=== PATIENT | female | born 1960 | race African-American/Black ===

== ENCOUNTER 2018-02-06 12:56 | Inpatient (IN) | END 2018-02-08 14:45 | disposition home or self-care (01) | DRG 558 ==

== ENCOUNTER 2018-09-17 14:57 | Inpatient (IN) | payer OTHER ==
[~2018-09-17] VITALS: Ht 180.3 cm; Wt 107.0 kg
[~2018-09-17 14:57] MED LIST: LAMO200T2 PO; OXYC-279 PO; QUET400T PO; TAMS0.4C2 PO
[2018-09-17] MEDS ORDERED: SOD CHLORIDE 0.9% 500 ML IV STA (15:10)
[2018-09-17] MEDS ORDERED: HYDROmorphONE 1 MG/ML SYG IV STA (15:10)
[2018-09-17] MEDS ORDERED: ONDANSETRON 4 MG INJ IV STA (15:10)
[2018-09-17] MEDS ORDERED: LAMO200T2 PO (15:59)
[2018-09-17] MEDS ORDERED: DOXE25CA2 PO (16:00)
[2018-09-17] MEDS ORDERED: QUET400T11 PO (16:00)
[2018-09-17] MEDS ORDERED: OXYC-431 PO (16:02)
[2018-09-17] MEDS ORDERED: HYDROmorphONE 2 MG/ML SYG IV STA ×2 (17:02→19:57)
[2018-09-17] MEDS ORDERED: LORAZEPAM 2 MG INJ IV ONE (18:00)
--- NOTE | 2018-09-17 20:34 | ERD ---
ER Documentation Chief Complaint Chief Complaint BIB RA FOR EVAL OF RT KNEE PAIN S/P KNEE REPLACEMENT 1 week ago HPI This is a 58-year-old female who is one-week status post total knee replacement at [facility]. The patient has not received any pain medication since her surgery. She refused pain medication upon discharge. She is coming in because of intractable right knee and right lower extremity pain since the surgery. The pain has been the exact same since discharge. She notes 9 out of 10 throbbing pain to the entirety of the right lower extremity with associated bruising. She denies any fevers or chills, she has not seen her surgeon since the surgery. ROS All systems reviewed and are negative except as per history of present illness. Medications Home Meds Reported Medications Oxycodone HCl/Acetaminophen (Oxycodone-Acetaminophen 10-325) 1 Each Tablet, 2 E ACH PO BID, TAB 09/17/18 Quetiapine Fumarate* (Quetiapine Fumarate*) 400 Mg Tablet, 400 MG PO HS, TAB 09/17/18 Doxepin Hcl* (Doxepin Hcl*) 25 Mg Capsule, 25 MG PO HS, CAP 09/17/18 Lamotrigine* (Lamotrigine*) 200 Mg Tablet, 200 MG PO DAILY, TAB 09/17/18 Discontinued Reported Medications Oxycodone HCl/Acetaminophen (Percocet 5-325 mg Tablet) 1 Each Tablet, 1 EACH PO NEEDED, TAB 02/04/18 Discontinued Scripts Quetiapine Fumarate* (Seroquel*) 400 Mg Tablet, 600 MG PO DAILY, #30 TAB Prov:REGIDORMITA 02/08/18 Lamotrigine* (Lamotrigine*) 200 Mg Tablet, 200 MG PO DAILY, #30 TAB Prov:REGROXRMITA 02/08/18 Tamsulosin Hcl* (Tamsulosin Hcl*) 0.4 Mg Cap.er.24h, 0.4 MG PO DAILY, #30 CAP Prov:MITA JIMENEZ 02/08/18 Allergies Allergies: Coded Allergies: bupropion (Verified Allergy, Intermediate, 09/17/18) PMhx/Soc History of Surgery: Yes (Bilateral Ankles, and Hysterectomy) Anesthesia Reaction: No Hx Neurological Disorder: Yes (Weakness, Dizziness) Hx Respiratory Disorders: Yes (Smoker) Hx Cardiac Disorders: No Hx Psychiatric Problems: Yes (Bipolar) Hx Miscellaneous Medical Probl: No Hx Alcohol Use: No Hx Substance Use: No Hx Tobacco Use: Yes Smoking Status: Current every day smoker FmHx Family History: No diabetes Physical Exam Vitals Vital Signs Date Temp Pulse Resp B/P (MAP) Pulse Ox O2 O2 Flow FiO2 Time Delivery Rate 09/17/18 103 16 149/98 98 Room Air 17:21 (115) 09/17/18 99.2 94 19 200/100 97 15:14 (133) Physical Exam General: Very uncomfortable Head: Normocephalic, atraumatic. Eyes: Pupils equally reactive, EOM intact ENT: Moist mucous membranes Neck: Supple, no lymphadenopathy Respiratory: Lungs clear bilaterally, no distress Cardiovascular: RRR, no murmurs, rubs, or gallops Abdominal: Soft, non-tender, non-distended, no peritoneal signs : Deferred MSK: The right lower extremity has swelling, bruising secondary to postoperative changes. The dressing is clean dry and intact. The patient is strong 2+ dorsalis pedis and posterior tibial pulses with good capillary refill distally. The patient's compartments are soft. Neurologic: Alert and oriented, moving all extremities, normal speech, no focal weakness, no cerebellar signs Skin: No rash Psych: Normal mood Result Diagram: 09/17/18 1534 Results 24 hrs Laboratory Tests Test 09/17/18 15:34 White Blood Count 17.2 10^3/ul Red Blood Count 3.00 10^6/ul Hemoglobin 8.5 g/dl Hematocrit 26.7 % Mean Corpuscular Volume 89.0 fl Mean Corpuscular Hemoglobin 28.3 pg Mean Corpuscular Hemoglobin Concent 31.8 g/dl Red Cell Distribution Width 16.0 % Platelet Count 473 10^3/UL Mean Platelet Volume 9.4 fl Immature Granulocytes % 1.200 % Neutrophils % 78.3 % Lymphocytes % 12.9 % Monocytes % 6.9 % Eosinophils % 0.5 % Basophils % 0.2 % Nucleated Red Blood Cells % 0.7 /100WBC Immature Granulocytes # 0.200 10^3/ul Neutrophils # 13.5 10^3/ul Lymphocytes # 2.2 10^3/ul Monocytes # 1.2 10^3/ul Eosinophils # 0.1 10^3/ul Basophils # 0.0 10^3/ul Nucleated Red Blood Cells # 0.1 10^3/ul Prothrombin Time 12.4 Sec Prothrombin Time Ratio 1.0 INR International Normalized Ratio 0.91 Activated Partial Thromboplast Time 29.4 Sec Current Medications Medications Dose Sig/Daniela Start Time Status Last (Trade) Ordered Route PRN Stop Time Admin Dose Reason Admin Sodium 500 ml @ Q1H STAT 09/17/18 DC 09/17/18 Chloride 500 mls/hr IV 15:10 15:38 09/17/18 16:09 1 mg ONCE STAT 09/17/18 DC 09/17/18 Hydromorphone IV 15:10 15:38 HCl 09/17/18 15:12 (Dilaudid) Ondansetron 4 mg ONCE STAT 09/17/18 DC 09/17/18 HCl (Zofran IV 15:10 15:38 Inj) 09/17/18 15:12 1 mg ONCE STAT 09/17/18 DC 09/17/18 Hydromorphone IV 17:02 17:08 HCl 09/17/18 17:03 (Dilaudid) Lorazepam 1 mg ONCE ONCE 09/17/18 DC 09/17/18 (Ativan) IV 18:00 18:26 09/17/18 18:01 1 mg ONCE STAT 09/17/18 DC 09/17/18 Hydromorphone IV 19:57 20:04 HCl 09/17/18 19:58 (Dilaudid) Procedures/MDM EKG, MONITORS, & DIAGNOSTIC IMAGING: Right lower extremity duplex: No evidence of DVT LAB INTERPRETATION: I reviewed the laboratory testing and it shows leukocytosis likely secondary to stress response. MEDICAL DECISION MAKING: Patient presents with significant pain status post surgical intervention of the right knee. Clinically the lower extremity is very consistent with normal postoperative changes secondary to total knee replacement. Patient does have swelling and ecchymoses and bruising but this is to be expected only 1 week after surgery. I believe the patient's pain is likely secondary to prolonged timeframe without any analgesia including no Tylenol, no Motrin and no pain medication. Patient has good capillary refill without evidence of vascular occlusion. Low concern for DVT the ultrasound would be appropriate. Compartments are soft and the patient is well perfused distally. ER COURSE: * The patient has required multiple doses of pain medication here in the emergency room. Anxiolysis additionally given. Given the persistence of discomfort I would recommend admission. I have attempted to reach out to the patient's primary surgeon but his office states that he is out of town and no one is covering. I have also reached out to [facility], they do not have any beds available but have given authorization to admit here and will take the patient in the morning when a bed becomes available. Authorization number is [id number] Nie[place] * The patient remains hemodynamically stable. I do not believe emergent surgical consultation or intervention is necessary at this time. This seems to be more of a pain control issue. CONSULTATION: [None] DISPOSITION PLAN: Accepting care team and consultations: I discussed the current laboratory data, diagnostic imaging and emergency care provided. Admitting team: Dr. Caldera Admitting team indication: Insurance directed Departure Diagnosis: Primary Impression: Postoperative pain of right knee Additional Impression: Leukocytosis Leukocytosis type: unspecified Qualified Codes: D72.829 - Elevated white blood cell count, unspecified Condition: Stable VIRGIL SCOTT MD Sep 17, 2018 20:34
[2018-09-17] MEDS ORDERED: ACETAMINOPHEN 325 MG TAB PO PRN ×2 (21:00→23:00)
[2018-09-17] MEDS ORDERED: ONDANSETRON 4 MG INJ IV PRN ×2 (21:00→23:00)
[2018-09-17 21:46] VITALS: BP 156/67; PULSE 93; RESP 20
[2018-09-17] MEDS ORDERED: morphine 4 MG/ML VIAL IV ONE (21:52)
[2018-09-17 22:52] VITALS: Ht 180.3 cm; Wt 107.0 kg
[2018-09-17] MEDS ORDERED: NACL 0.9% 3 ML SYG IV SCH (23:00)
[2018-09-17] MEDS ORDERED: HYDROCODONE/APAP (5/325) TAB PO PRN (23:00)
[2018-09-17] MEDS: SOD CHLORIDE 0.9% 1,000 ML IV SCH (23:06)
[2018-09-17] MEDS: HYDROCODONE/APAP (5/325) TAB PO PRN (23:12)
--- NOTE | 2018-09-17 23:37 | HP ---
Date/Time of Note Date/Time of Note DATE: 09/17/18 TIME: 23:37 Assessment/Plan VTE Prophylaxis SCD applied (from Nsg): Yes Pharmacological prophylaxis: NA/contraindicated Pharm contraindication: other (Right lower extremities with ecchymosis. Patient also recent surgery) Lines/Catheters IV Catheter Type (from Nrsg): Saline Lock Assessment/Plan Assessment/Plan 1. Right knee pain: Status post total knee replacement a week ago at [facility] -Obtain x-ray and also CT -Pain management -Empiric antibiotic given presentation of SIRS -ID consult -There is some ecchymosis noted on the right lower extremity including the thigh. Patient has been on aspirin 325 daily. Will hold aspirin and any anticoagulation for now, but daytime MD need to follow-up with this closely and restart aspirin if the CT shows no bleeding. -Case management for transfer to [facility] 2. SIRS, as evidenced by leukocytosis and tachycardia -Check UA, urine culture and blood culture -Empiric IV antibiotic -See #1 3. Hypertensive urgency: Likely pain induced. BP better controlled 4. Bipolar: Continue home meds 5. Normocytic anemia: Likely of chronic disease -Monitor and transfuse as needed Result Diagram: 09/17/18 1534 09/17/182009 Results 24hrs Laboratory Tests Test 09/17/18 15:34 09/17/18 20:10 White Blood Count 17.2 #H Red Blood Count 3.00 L Hemoglobin 8.5 #L Hematocrit 26.7 #L Mean Corpuscular Volume 89.0 Mean Corpuscular Hemoglobin 28.3 L Mean Corpuscular Hemoglobin Concent 31.8 L Red Cell Distribution Width 16.0 H Platelet Count 473 #H Mean Platelet Volume 9.4 Immature Granulocytes % 1.200 H Neutrophils % 78.3 H Lymphocytes % 12.9 L Monocytes % 6.9 Eosinophils % 0.5 Basophils % 0.2 Nucleated Red Blood Cells % 0.7 H Immature Granulocytes # 0.200 H Neutrophils # 13.5 H Lymphocytes # 2.2 Monocytes # 1.2 H Eosinophils # 0.1 Basophils # 0.0 Nucleated Red Blood Cells # 0.1 H Prothrombin Time 12.4 Prothrombin Time Ratio 1.0 INR International Normalized Ratio 0.91 Activated Partial Thromboplast Time 29.4 Sodium Level 141 Potassium Level 3.6 Chloride Level 109 Carbon Dioxide Level 21 Anion Gap 11 Blood Urea Nitrogen 16 Creatinine 0.67 Est Glomerular Filtrat Rate mL/min > 60 Glucose Level 110 Calcium Level 9.1 Creatine Kinase 209 H HPI/ROS Admit Date/Time Admit Date/Time Sep 17, 2018 at 20:38 Hx of Present Illness This is a 58-year-old female with a history of bipolar, normocytic anemia, rhabdomyolysis and right total knee replacement a week ago at [facility] who presented to ER complaining of right knee pain. Pain has been persistent since she had a surgery. She said she went home without the pain medication thinking that she had it at home. She has not been taking any pain medication even Tylenol at home. Pain became unbearable today and thus that she came to the ER for evaluation. Also complains of lower extremity pain on the same leg. Right lower extremity is more swollen than the left. There is ecchymosis noted on the thigh, and calf. She has been taking aspirin 325 daily. Denied redness or any sign of infection. Due to bed unavailability patient could not be transferred to [facility] and as such given authorization to admit here. In the ER, blood pressure was 200/100. WBC 17,000. No fever, hemoglobin 8.5. Lower extremity venous study was negative for DVT. PMH/Family/Social Past Medical History Medical History: other (See HPI) Medications Current Medications Ondansetron HCl (Zofran Inj) 4 mg BRIDGE ORDER PRN IV NAUSEA/VOMITING; Start 09/17/18 at 21:00; Stop 09/18/18 at 20:59 Acetaminophen (Tylenol Tab) 650 mg ER BRIDGE PRN PO .MILD PAIN 1-3 OR TEMP Last administered on 09/17/18at 21:18; Admin Dose 650 MG; Start 09/17/18 at 21:00; Stop 09/18/18 at 20:59 Sodium Chloride 1,000 ml @ 100 mls/hr Q10H IV Last administered on 09/17/18at 23:06; Admin Dose 100 MLS/HR; Start 09/17/18 at 22:32; Stop 09/18/18 at 23:00 IV Flush (NS 3 ml) 3 ml PER PROTOCOL IV ; Start 09/17/18 at 23:00 Ondansetron HCl (Zofran Inj) 4 mg Q6H PRN IV NAUSEA/VOMITING; Start 09/17/18 at 23:00 Acetaminophen (Tylenol Tab) 650 mg Q6H PRN PO .PAIN 1-3 OR TEMP; Start 09/17/18 at 23:00 Acetaminophen/ Hydrocodone Bitart (Jennings (5/325)) 1 tab Q6H PRN PO .MOD PAIN 4- 6; Start 09/17/18 at 23:00 Acetaminophen/ Hydrocodone Bitart (Jennings (5/325)) 2 tab Q6H PRN PO .SEVERE PAIN 7-10 Last administered on 09/17/18at 23:12; Admin Dose 2 TAB; Start 09/17/18 at 23:00 Morphine Sulfate (morphine) 3 mg Q4H PRN IV PAIN7-10,NOTRELIEVEDWITHNORCO; Start 09/17/18 at 23:00 Heparin Sodium (Porcine) (Heparin (5000 Units/1ml)) 5,000 unit Q12 SC ; Start 09/18/18 at 09:00 Doxepin HCl (Sinequan) 25 mg HS PO ; Start 09/18/18 at 21:00 Lamotrigine (Lamictal) 200 mg DAILY PO ; Start 09/18/18 at 09:00 Quetiapine Fumarate (Seroquel) 400 mg HS PO ; Start 09/18/18 at 21:00 Coded Allergies: bupropion (Verified Allergy, Intermediate, 09/17/18) Past Surgical History Past Surgical Hx: other (See HPI) Family History Significant Family History: no pertinent family hx Social History Alcohol Use: none Smoking Status: Former smoker Drug Use: none Exam/Review of Systems Vital Signs Vitals Vital Signs Date Temp Pulse Resp B/P (MAP) Pulse Ox O2 O2 Flow FiO2 Time Delivery Rate 09/17/18 98.0 93 20 156/67 95 Room Air 21:46 (96) Exam Constitutional: other (In distress due to pain) Head: normocephalic, atraumatic Eyes: EOMI, PERRL Respiratory: clear to auscultation, normal air movement Cardiovascular: regular rate and rhythm, nl pulses Gastrointestinal: soft, non-tender Musculoskeletal: other (Right lower extremity swelling. Surgical site on the knee without sign of infection. Area is tender to touch) CHRIS SONG MD Sep 17, 2018 23:37
[2018-09-18 02:12] VITALS: BP 144/77; PULSE 106; RESP 19
[2018-09-18] MEDS: morphine 2 MG INJ IV PRN ×2 (03:23→07:52)
[2018-09-18] MEDS ORDERED: PENDING SANTYL ORDER FOR WOUND CARE XX PRN (04:30)
[2018-09-18] MEDS: HYDROCODONE/APAP (5/325) TAB PO PRN (05:22)
[2018-09-18] MEDS ORDERED: VANCOMYCIN IV PER PHARMACY XX SCH ×2 (06:30→16:30)
[2018-09-18] MEDS ORDERED: VANCOMYCIN HCL 2 GM in SOD CHLORIDE 0.9% 500 ML IVPB SCH (06:30)
[2018-09-18 08:23] VITALS: BP 185/105; PULSE 117; RESP 18
[2018-09-18] MEDS ORDERED: HYDROmorphONE 1 MG/ML SYG IV ONE ×2 (08:30)
[2018-09-18] MEDS: SOD CHLORIDE 0.9% 1,000 ML IV SCH ×2 (08:32→16:34)
[2018-09-18] MEDS ORDERED: LAMOTRIGINE 100 MG TAB PO SCH (09:00)
[2018-09-18] MEDS ORDERED: CEFEPIME 1GM/50 ML (PMX) 50 ML IVPB SCH ×2 (09:00→14:00)
[2018-09-18] MEDS: HEPARIN 5,000 UNIT/1 ML VIAL SC SCH ×2 (09:23→20:08)
--- NOTE | 2018-09-18 09:31 | CONS ---
Consultation Date/Type/Reason Admit Date/Time Sep 17, 2018 at 20:38 Date/Time of Note DATE: 09/18/18 TIME: 09:26 Hx of Present Illness Patient is a 58-year-old female who underwent a right total knee replacement at [facility] 1 week prior to this hospitalization. She left the hospital without pain medications. States that since discharge from hospital she has had increasing discomfort in her right knee worse when she walks but continues to have pain at rest is a gnawing type discomfort does not radiate to her thigh or to her calf. She is unable to participate in any physical therapy activities secondary to pain out of control. At home she has taken Percocet 2 tablets twice a day 10 mg which I have confirmed on the cures. Rates her pain is 10/10 she is receiving Pesotum and morphine since admission here pain seems to be under control when she is administered morphine. Pain interferes with her physical functioning social relationship sleeping patterns overall function there is no past medical history of purposeful or sit oversedation negative mood changes she does not appear to be intoxicated or unkempt. She is not requesting increasing doses or early renewals once again as an outpatient patient has been receiving 120 mg of Percocet every 30 days by her primary care painting and coating worker this is confirmed by the cures history. Patient is not reporting any lost or stolen prescriptions I do not get the impression she is using pain medication response to situational stressors and she is not insisting upon certain pain control medications there is no history of smoking or alcohol abuse. After having leaving multiple messages for her orthopedic surgeon she has been unsuccessful in contacting him. She is also been unsuccessful in contacting her pain management physician. She presents also with leukocytosis and left shift on her CBC. Subjective hx not possible: pt non-verbal Constitutional: No no complaints, No improved, No chills, No diaphoresis, No disoriented, No febrile, No poor po, No requiring IVF, No requiring O2, No other Eyes: No no complaints, No pain, No discharge, No redness, No visual change, No other ENT: No no complaints, No bleeding, No pain, No congestion, No discharge, No dysphagia, No sore throat, No other Respiratory: No no complaints, No pain, No cough, No pleuritic pain, No shortness of breath, No sputum, No wheezing, No other Cardiovascular: No no complaints, No chest pain, No edema, No lightheadedness, No orthopenea, No palpitations, No paroxysmal nocturnal dyspnea, No other Gastrointestinal: No no complaints, No pain, No blood, No constipation, No decreased appetite, No diarrhea, No flatus, No nausea, No passing stool, No vomiting, No other Genitourinary: No no complaints, No bleeding, No dysuria, No discharge, No flank pain, No hematuria, No other Musculoskeletal: No no complaints, No back pain, No bone/joint pain, No neck pain, No restricted range of motion, No swelling, No other Neurologic: No no complaints, No confusion, No dizziness, No focal-weakness, No headache, No syncope, No seizure, No other Endocrine: No no complaints, No polyuria, No polydypsia, No dry skin, No temp intolerance, No other Psychological: anxiety, depression Immunologic: No no complaints, No immunodeficiency, No pruritis, No rhinitis, No urticaria, No other Past Medical History Medical History: other (Depression, chronic low back pain) Home Meds Reported Medications Oxycodone HCl/Acetaminophen (Oxycodone-Acetaminophen 10-325) 1 Each Tablet, 2 EACH PO BID, TAB 09/17/18 Quetiapine Fumarate* (Quetiapine Fumarate*) 400 Mg Tablet, 400 MG PO HS, TAB 09/17/18 Doxepin Hcl* (Doxepin Hcl*) 25 Mg Capsule, 25 MG PO HS, CAP 09/17/18 Lamotrigine* (Lamotrigine*) 200 Mg Tablet, 200 MG PO DAILY, TAB 09/17/18 Discontinued Reported Medications Oxycodone HCl/Acetaminophen (Percocet 5-325 mg Tablet) 1 Each Tablet, 1 EACH PO NEEDED, TAB 02/04/18 Discontinued Scripts Quetiapine Fumarate* (Seroquel*) 400 Mg Tablet, 600 MG PO DAILY, #30 TAB Prov:MITA JIMENEZ 02/08/18 Lamotrigine* (Lamotrigine*) 200 Mg Tablet, 200 MG PO DAILY, #30 TAB Prov:MITA JIMENEZ 02/08/18 Tamsulosin Hcl* (Tamsulosin Hcl*) 0.4 Mg Cap.er.24h, 0.4 MG PO DAILY, #30 CAP Prov:MITA JIMENEZ 02/08/18 Medications Current Medications Sodium Chloride 1,000 ml @ 100 mls/hr Q10H IV Last administered on 09/17/18at 23:06; Admin Dose 100 MLS/HR; Start 09/17/18 at 22:32; Stop 09/18/18 at 23:00 IV Flush (NS 3 ml) 3 ml PER PROTOCOL IV ; Start 09/17/18 at 23:00 Ondansetron HCl (Zofran Inj) 4 mg Q6H PRN IV NAUSEA/VOMITING; Start 09/17/18 at 23:00 Acetaminophen (Tylenol Tab) 650 mg Q6H PRN PO .PAIN 1-3 OR TEMP; Start 09/17/18 at 23:00 Acetaminophen/ Hydrocodone Bitart (Pesotum (5/325)) 1 tab Q6H PRN PO .MOD PAIN 4- 6; Start 09/17/18 at 23:00 Acetaminophen/ Hydrocodone Bitart (Pesotum (5/325)) 2 tab Q6H PRN PO .SEVERE PAIN 7-10 Last administered on 09/18/18at 05:22; Admin Dose 2 TAB; Start 09/17/18 at 23:00 Morphine Sulfate (morphine) 3 mg Q4H PRN IV PAIN7-10,NOTRELIEVEDWITHNORCO Last administered on 09/18/18at 07:52; Admin Dose 3 MG; Start 09/17/18 at 23:00 Heparin Sodium (Porcine) (Heparin (5000 Units/1ml)) 5,000 unit Q12 SC ; Start 09/18/18 at 09:00 Doxepin HCl (Sinequan) 25 mg HS PO ; Start 09/18/18 at 21:00 Lamotrigine (Lamictal) 200 mg DAILY PO ; Start 09/18/18 at 09:00 Quetiapine Fumarate (Seroquel) 400 mg HS PO ; Start 09/18/18 at 21:00 Miscellaneous Information (Pending [facility] Order For Wound Care) This patient macias. .. PRN PRN XX WOUND CARE; Start 09/18/18 at 04:30 Cefepime HCl 50 ml @ 100 mls/hr Q12 IVPB ; Start 09/18/18 at 09:00 Vancomycin HCl (Vanco Iv Per Pharmacy) VANCOMYCIN PER PHARMACY PER PROTOCOL XX ; Start 09/18/18 at 06:30 Vancomycin HCl 2 gm/Sodium Chloride 500 ml @ 125 mls/hr ONCE IVPB Last adm inistered on 09/18/18at 07:58; Admin Dose 125 MLS/HR; Start 09/18/18 at 06:30; Stop 09/18/18 at 10:29 Vancomycin HCl 1.5 gm/Sodium Chloride 250 ml @ 83.333 mls/ hr Q12H IVPB ; Start 09/18/18 at 18:30 Allergies: Coded Allergies: bupropion (Verified Allergy, Intermediate, 09/17/18) Past Surgical History Past Surgical Hx: other (Refer to history of present illness) Social History Alcohol Use: none Smoking Status: Former smoker Drug Use: none Exam/Review of Systems Exam Vitals Vital Signs Date Temp Pulse Resp B/P (MAP) Pulse Ox O2 O2 Flow FiO2 Time Delivery Rate 09/18/18 98.1 117 18 185/105 100 08:23 (131) 09/17/18 Room Air 21:46 Intake and Output 09/17/18 09/17/18 09/18/18 1515:00 23:00 07:00 IntakeIntake Total 1000 ml BalanceBalance 1000 ml Constitutional: alert, oriented, well developed Psych: anxiety Head: normocephalic, atraumatic ENMT: nl external ears & nose, nl lips & teeth, nl nasal mucosa & septum Musculoskeletal: other (Grossly edematous right lower extremity, circumferential ecchymosis, without erythema flocculence streaking erythema longitudinal scar measuring approximately 10 cm well-healed without discharge or flocculence range of motion right lower extremity) Results Result Diagram: 09/18/1851 09/18/18 0651 Results 24hrs Laboratory Tests Test 09/17/18 15:34 09/17/18 20:10 09/18/18 06:51 White Blood Count 17.2 #H 20.0 H Red Blood Count 3.00 L 3.08 L Hemoglobin 8.5 #L 8.6 L Hematocrit 26.7 #L 27.8 L Mean Corpuscular Volume 89.0 90.3 Mean Corpuscular Hemoglobin 28.3 L 27.9 L Mean Corpuscular Hemoglobin Concent 31.8 L 30.9 L Red Cell Distribution Width 16.0 H 16.8 H Platelet Count 473 #H 500 H Mean Platelet Volume 9.4 9.4 Immature Granulocytes % 1.200 H 0.900 H Neutrophils % 78.3 H 86.8 H Lymphocytes % 12.9 L 5.2 L Monocytes % 6.9 7.0 Eosinophils % 0.5 0.0 Basophils % 0.2 0.1 Nucleated Red Blood Cells % 0.7 H 0.2 H Immature Granulocytes # 0.200 H 0.170 H Neutrophils # 13.5 H 17.4 H Lymphocytes # 2.2 1.0 Monocytes # 1.2 H 1.4 H Eosinophils # 0.1 0.0 Basophils # 0.0 0.0 Nucleated Red Blood Cells # 0.1 H 0.0 Prothrombin Time 12.4 Prothrombin Time Ratio 1.0 INR International Normalized Ratio 0.91 Activated Partial Thromboplast Time 29.4 Sodium Level 141 139 Potassium Level 3.6 3.6 Chloride Level 109 104 Carbon Dioxide Level 21 23 Anion Gap 11 12 Blood Urea Nitrogen 16 14 Creatinine 0.67 0.58 Est Glomerular Filtrat Rate mL/min > 60 > 60 Glucose Level 110 108 Calcium Level 9.1 9.1 Creatine Kinase 209 H Phosphorus Level 3.9 Magnesium Level 1.8 Total Bilirubin 1.1 Direct Bilirubin 0.00 Indirect Bilirubin 1.1 Aspartate Amino Transf (AST/SGOT) 35 Alanine Aminotransferase (ALT/SGPT) 29 Alkaline Phosphatase 92 Total Protein 7.5 Albumin 4.3 Globulin 3.20 Albumin/Globulin Ratio 1.34 Medications Medication Current Medications Sodium Chloride 1,000 ml @ 100 mls/hr Q10H IV Last administered on 09/17/18at 23:06; Admin Dose 100 MLS/HR; Start 09/17/18 at 22:32; Stop 09/18/18 at 23:00 IV Flush (NS 3 ml) 3 ml PER PROTOCOL IV ; Start 09/17/18 at 23:00 Ondansetron HCl (Zofran Inj) 4 mg Q6H PRN IV NAUSEA/VOMITING; Start 09/17/18 at 23:00 Acetaminophen (Tylenol Tab) 650 mg Q6H PRN PO .PAIN 1-3 OR TEMP; Start 09/17/18 at 23:00 Acetaminophen/ Hydrocodone Bitart (Pesotum (5/325)) 1 tab Q6H PRN PO .MOD PAIN 4- 6; Start 09/17/18 at 23:00 Acetaminophen/ Hydrocodone Bitart (Pesotum (5/325)) 2 tab Q6H PRN PO .SEVERE PAIN 7-10 Last administered on 09/18/18at 05:22; Admin Dose 2 TAB; Start 09/17/18 at 23:00 Morphine Sulfate (morphine) 3 mg Q4H PRN IV PAIN7-10,NOTRELIEVEDWITHNORCO Last administered on 09/18/18at 07:52; Admin Dose 3 MG; Start 09/17/18 at 23:00 Heparin Sodium (Porcine) (Heparin (5000 Units/1ml)) 5,000 unit Q12 SC ; Start 09/18/18 at 09:00 Doxepin HCl (Sinequan) 25 mg HS PO ; Start 09/18/18 at 21:00 Lamotrigine (Lamictal) 200 mg DAILY PO ; Start 09/18/18 at 09:00 Quetiapine Fumarate (Seroquel) 400 mg HS PO ; Start 09/18/18 at 21:00 Miscellaneous Information (Pending [facility]) This patient macias... PRN PRN XX WOUND CARE; Start 09/18/18 at 04:30 Cefepime HCl 50 ml @ 100 mls/hr Q12 IVPB ; Start 09/18/18 at 09:00 Vancomycin HCl (Vanco Iv Per Pharmacy) VANCOMYCIN PER PHARMACY PER PROTOCOL XX ; Start 09/18/18 at 06:30 Vancomycin HCl 2 gm/Sodium Chloride 500 ml @ 125 mls/hr ONCE IVPB Last administered on 09/18/18at 07:58; Admin Dose 125 MLS/HR; Start 09/18/18 at 06:30; Stop 09/18/18 at 10:29 Vancomycin HCl 1.5 gm/Sodium Chloride 250 ml @ 83.333 mls/ hr Q12H IVPB ; Start 09/18/18 at 18:30 SAMMY BARNETT Sep 18, 2018 09:31
[2018-09-18] MEDS: OXYCODONE/ACETAMINOPHEN (10/325) TAB PO PRN ×2 (09:36→21:23)
[2018-09-18 10:28] VITALS: BP 151/68; PULSE 105
[2018-09-18] MEDS: HYDROmorphONE 0.5 MG/0.5 ML SYG IV PRN ×3 (12:30→19:56)
[2018-09-18 14:51] VITALS: BP 151/72; PULSE 107; RESP 18
--- NOTE | 2018-09-18 16:07 | PN ---
Date/Time of Note Date/Time of Note DATE: 09/18/18 TIME: 16:01 Assessment/Plan VTE Prophylaxis Risk score (from Nsg)>0 risk: 7 SCD applied (from Nsg): Yes Pharmacological prophylaxis: heparin Lines/Catheters IV Catheter Type (from Nrsg): Peripheral IV Assessment/Plan Hospital Course 1. Right knee pain: Status post total knee replacement a week ago at [facility] -X-ray shows only effusion -Pain management -Empiric cefepime -ID consult obtained -Hold aspirin -Case management for transfer to [facility] 2. SIRS, as evidenced by leukocytosis and tachycardia -Continue cefepime, DC Vanco -ID consultation obtained 3. Hypertensive urgency: Likely pain induced. BP better controlled 4. Bipolar: Continue home meds 5. Normocytic anemia: Likely of chronic disease -Monitor and transfuse as needed Prophylaxis: Heparin Result Diagram: 09/18/18 0651 09/18/18 0651 Results 24hrs Laboratory Tests Test 09/17/18 20:10 09/18/18 06:51 Sodium Level 141 139 Potassium Level 3.6 3.6 Chloride Level 109 104 Carbon Dioxide Level 21 23 Anion Gap 11 12 Blood Urea Nitrogen 16 14 Creatinine 0.67 0.58 Est Glomerular Filtrat Rate mL/min > 60 > 60 Glucose Level 110 108 Calcium Level 9.1 9.1 Creatine Kinase 209 H White Blood Count 20.0 H Red Blood Count 3.08 L Hemoglobin 8.6 L Hematocrit 27.8 L Mean Corpuscular Volume 90.3 Mean Corpuscular Hemoglobin 27.9 L Mean Corpuscular Hemoglobin Concent 30.9 L Red Cell Distribution Width 16.8 H Platelet Count 500 H Mean Platelet Volume 9.4 Immature Granulocytes % 0.900 H Neutrophils % 86.8 H Lymphocytes % 5.2 L Monocytes % 7.0 Eosinophils % 0.0 Basophils % 0.1 Nucleated Red Blood Cells % 0.2 H Immature Granulocytes # 0.170 H Neutrophils # 17.4 H Lymphocytes # 1.0 Monocytes # 1.4 H Eosinophils # 0.0 Basophils # 0.0 Nucleated Red Blood Cells # 0.0 Phosphorus Level 3.9 Magnesium Level 1.8 Total Bilirubin 1.1 Direct Bilirubin 0.00 Indirect Bilirubin 1.1 Aspartate Amino Transf (AST/SGOT) 35 Alanine Aminotransferase (ALT/SGPT) 29 Alkaline Phosphatase 92 Total Protein 7.5 Albumin 4.3 Globulin 3.20 Albumin/Globulin Ratio 1.34 Subjective 24 Hr Interval Summary Musculoskeletal: bone/joint pain Exam/Review of Systems Exam Vitals Vital Signs Date Temp Pulse Resp B/P (MAP) Pulse Ox O2 O2 Flow FiO2 Time Delivery Rate 09/18/18 98.7 107 18 151/72 95 Room Air 14:51 (98) Intake and Output 09/17/18 09/17/18 09/18/18 1515:00 23:00 07:00 IntakeIntake Total 1000 ml BalanceBalance 1000 ml Constitutional: alert Respiratory: clear to auscultation Cardiovascular: regular rate and rhythm Gastrointestinal: soft; No distended Musculoskeletal: nl extremities to inspection Results Results 24hrs Laboratory Tests Test 09/17/18 20:10 09/18/18 06:51 Sodium Level 141 139 Potassium Level 3.6 3.6 Chloride Level 109 104 Carbon Dioxide Level 21 23 Anion Gap 11 12 Blood Urea Nitrogen 16 14 Creatinine 0.67 0.58 Est Glomerular Filtrat Rate mL/min > 60 > 60 Glucose Level 110 108 Calcium Level 9.1 9.1 Creatine Kinase 209 H White Blood Count 20.0 H Red Blood Count 3.08 L Hemoglobin 8.6 L Hematocrit 27.8 L Mean Corpuscular Volume 90.3 Mean Corpuscular Hemoglobin 27.9 L Mean Corpuscular Hemoglobin Concent 30.9 L Red Cell Distribution Width 16.8 H Platelet Count 500 H Mean Platelet Volume 9.4 Immature Granulocytes % 0.900 H Neutrophils % 86.8 H Lymphocytes % 5.2 L Monocytes % 7.0 Eosinophils % 0.0 Basophils % 0.1 Nucleated Red Blood Cells % 0.2 H Immature Granulocytes # 0.170 H Neutrophils # 17.4 H Lymphocytes # 1.0 Monocytes # 1.4 H Eosinophils # 0.0 Basophils # 0.0 Nucleated Red Blood Cells # 0.0 Phosphorus Level 3.9 Magnesium Level 1.8 Total Bilirubin 1.1 Direct Bilirubin 0.00 Indirect Bilirubin 1.1 Aspartate Amino Transf (AST/SGOT) 35 Alanine Aminotransferase (ALT/SGPT) 29 Alkaline Phosphatase 92 Total Protein 7.5 Albumin 4.3 Globulin 3.20 Albumin/Globulin Ratio 1.34 Medications Medication Current Medications Sodium Chloride 1,000 ml @ 100 mls/hr Q10H IV Last administered on 09/17/18at 23:06; Admin Dose 100 MLS/HR; Start 09/17/18 at 22:32; Stop 09/18/18 at 23:00 IV Flush (NS 3 ml) 3 ml PER PROTOCOL IV ; Start 09/17/18 at 23:00 Ondansetron HCl (Zofran Inj) 4 mg Q6H PRN IV NAUSEA/VOMITING; Start 09/17/18 at 23:00 Acetaminophen (Tylenol Tab) 650 mg Q6H PRN PO .PAIN 1-3 OR TEMP; Start 09/17/18 at 23:00 Heparin Sodium (Porcine) (Heparin (5000 Units/1ml)) 5,000 unit Q12 SC Last administered on 09/18/18at 09:23; Admin Dose 5,000 UNIT; Start 09/18/18 at 09:00 Doxepin HCl (Sinequan) 25 mg HS PO ; Start 09/18/18 at 21:00 Lamotrigine (Lamictal) 200 mg DAILY PO Last administered on 09/18/18at 09:20; Admin Dose 200 MG; Start 09/18/18 at 09:00 Quetiapine Fumarate (Seroquel) 400 mg HS PO ; Start 09/18/18 at 21:00 Miscellaneous Information (Pending Santyl Order For Wound Care) This patient macias... PRN PRN XX WOUND CARE; Start 09/18/18 at 04:30 Vancomycin HCl (Vanco Iv Per Pharmacy) VANCOMYCIN PER PHARMACY PER PROTOCOL XX ; Start 09/18/18 at 06:30 Vancomycin HCl 1.5 gm/Sodium Chloride 250 ml @ 83.333 mls/ hr Q12H IVPB ; Start 09/18/18 at 18:30 Oxycodone/ Acetaminophen (Endocet (10/ 325)) 2 tab BID PRN PO PAIN LEVEL 1-3 Last administered on 09/18/18at 09:36; Admin Dose 2 TAB; Start 09/18/18 at 09:00 Hydromorphone HCl (Dilaudid) 0.25 mg Q4H PRN IV SEVERE PAIN LEVEL 7-10 Last administered on 09/18/18at 12:30; Admin Dose 0.25 MG; Start 09/18/18 at 09:00 Cefepime HCl 50 ml @ 100 mls/hr Q12 IVPB Last administered on 09/18/18at 14:45; Admin Dose 100 MLS/HR; Start 09/18/18 at 14:00 Miscellaneous Information (*Rx Drug Level Order Reminder*) VANCO TR LEVEL PRIOR ... 1730 ONCE XX ; Start 09/19/18 at 17:30; Stop 09/19/18 at 17:31 MOISES BRAR Sep 18, 2018 16:07
--- NOTE | 2018-09-18 17:57 | CONS ---
DATE OF ADMISSION: 09/18/2018 DATE OF CONSULTATION: 09/18/2018 TYPE OF CONSULTATION: Infectious Disease. REASON FOR CONSULTATION: Antibiotic management. HISTORY OF PRESENT ILLNESS: Sarita Rao is a 58-year-old female who was brought in for evaluation of right knee pain status post knee replacement 1 week ago at [facility]. She has not received any pain medicine since the surgery. She refused pain medication upon discharge. She had intractable r ight knee and right lower extremity pain since the surgery. She complains of 9/10 throbbing pain to the right lower extremity and has not seen her surgeon since the surgery. Past problems include: 1. Surgeries on both ankles. 2. Hysterectomy. 3. Bipolar disorder. 4. Status post total right knee replacement. FAMILY HISTORY: Noncontributory. SOCIAL HISTORY: She is a current every day smoker. She does not drink or abuse drugs. ALLERGIES: NONE TO PENICILLIN, SULFA OR FOODS. MEDICATIONS: Per chart. REVIEW OF SYSTEMS: As per HPI. ANCILLARY LABORATORY DATA: White count 17.2, H and H of 8.5 and 26.7, platelet count 473,000. An x- ray of the knee shows postsurgical changes from right total knee arthroplasty with anatomic alignment , suprapatellar effusion. White count today is up to 20,000. BUN and creatinine are 11/0.67. The p atient had a CT scan ordered. She has evidence of . There is some ecchymosis noted in the right lower extremity including the thighs. She has been on as pirin. We will hold aspirin at the present time. Case management for transfer to [facility]. She was s een by Dr. Myers, started on empiric cefepime. ID consult was obtained. She was on vancomycin, wh ich is a good choice. PHYSICAL EXAMINATION: SKIN: Without generalized rash. HEENT: Within normal limits. NECK: Supple. LYMPH NODES: None palpable. CHEST: Decreased breath sounds at the bases. HEART: Without murmur or gallop. ABDOMEN: Soft and nontender, without organosplenomegaly or masses. EXTREMITIES: She has bruising secondary to postoperative changes and swelling. The dressing is floyd n and dry. RECTAL AND GENITAL: Deferred. NEUROLOGIC: No focal neurological abnormality. IMPRESSION AND PLAN: The patient currently has increasing bruising. She is afebrile. DVT study is negative. The patient has received vancomycin. The cultures so far are pending. We will continue h er on cefepime for the time being, but she may benefit from vancomycin. I am going to add vancomycin , pharmacy to dose. Dictated By: ASHKAN REYES MD, JD/ABDIRIZAK Conf#: [id number] DID#: [id number]
[2018-09-18] MEDS ORDERED: VANCOMYCIN HCL 1.5 GM in SOD CHLORIDE 0.9% 250 ML IVPB SCH ×2 (18:30→20:00)
--- NOTE | 2018-09-18 19:18 | DS ---
Date/Time of Note Date/Time of Note DATE: 09/18/18 TIME: 19:14 Discharge Summary Admission/Discharge Info Admit Date/Time September 17, 2018 Discharge Date/Time September 18, 2018 Discharge Diagnosis 1. Right knee pain: Status post total knee replacement a week ago at [facility] -X-ray shows only effusion, MRI shows moderate effusion -ID consult appreciated, continue IV antibiotics -Patient be transferred back to [facility] where recent right total knee was done 2. SIRS, as evidenced by leukocytosis and tachycardia -Continue antibiotics at outside hospital -Patient has received vancomycin and cefepime during this hospitalization 3. Hypertensive urgency: Likely pain induced. BP better controlled 4. Bipolar: Continue home meds 5. Normocytic anemia: Likely of chronic disease -Monitor and transfuse as needed Patient Condition: Good Hospital Course Patient is a 58-year-old female with a history of obesity, schizophrenia as well as recent right knee replacement done at [facility]. Patient presented with right knee pain with erythema and effusion, x-ray and MRI showed moderate effusion the patient was started on IV antibiotics. Of note patient did have leukocytosis as well as tachycardia suggesting sepsis. records manager arrange for patient to be transferred back to [facility] where surgery was done, on the day of transfer patient's vitals, labs and physical exam are stable. Home Meds Reported Medications Oxycodone HCl/Acetaminophen (Oxycodone-Acetaminophen 10-325) 1 Each Tablet, 2 EACH PO BID, TAB 09/17/18 Quetiapine Fumarate* (Quetiapine Fumarate*) 400 Mg Tablet, 400 MG PO HS, TAB 09/17/18 Doxepin Hcl* (Doxepin Hcl*) 25 Mg Capsule, 25 MG PO HS, CAP 09/17/18 Lamotrigine* (Lamotrigine*) 200 Mg Tablet, 200 MG PO DAILY, TAB 09/17/18 Discontinued Reported Medications Oxycodone HCl/Acetaminophen (Percocet 5-325 mg Tablet) 1 Each Tablet, 1 EACH PO NEEDED, TAB 02/04/18 Discontinued Scripts Quetiapine Fumarate* (Seroquel*) 400 Mg Tablet, 600 MG PO DAILY, #30 TAB Prov:MITA JIMENEZ 02/08/18 Lamotrigine* (Lamotrigine*) 200 Mg Tablet, 200 MG PO DAILY, #30 TAB Prov:REGIDOR,MITA 02/08/18 Tamsulosin Hcl* (Tamsulosin Hcl*) 0.4 Mg Cap.er.24h, 0.4 MG PO DAILY, #30 CAP Prov:MITA JIMENEZ 02/08/18 Follow-up Plan Follow-up with physicians at [facility] Primary Care Provider Care Physician No Primary Time spent on discharge: > 30 minutes MOISES BRAR Sep 18, 2018 19:18
[2018-09-18 19:30] VITALS: BP 139/74; PULSE 122; RESP 18
[2018-09-18] MEDS ORDERED: DOXEPIN 25 MG CAP ONE (19:50)
[2018-09-18] MEDS ORDERED: QUETIAPINE 100 MG TAB ONE (19:50)
[2018-09-18 20:03] VITALS: BP 144/73; PULSE 114; RESP 20
[2018-09-18] MEDS ORDERED: DOXEPIN 25 MG CAP PO SCH (21:00)
[2018-09-18] MEDS ORDERED: QUETIAPINE 100 MG TAB PO SCH (21:00)
== END 2018-09-18 22:53 | disposition short-term general hospital (02) | DRG 556 ==
LOC: E/R 14:57 → PP2 20:38 → OBSVTOIN 09-18 09:30
PROVIDERS: ADMIT Internal Medicine; ATTEND Internal Medicine
DX: M25.561 Pain in right knee (principal); R65.10 Systemic inflammatory response syndrome (SIRS) of non-infectious origin without acute organ dysfunction; Z79.82 Long term (current) use of aspirin; I16.0 Hypertensive urgency; F31.9 Bipolar disorder, unspecified; D63.8 Anemia in other chronic diseases classified elsewhere; Z96.651 Presence of right artificial knee joint
CPT/HCPCS: 36415; 73562; 73700; 73721; 80048; 80053; 81001; 81003; 82550; 83735; 84100; 85025; 85610; 85730; 87086; 93971; 96374; 96375; 96376; G0378; J0692; J1170; J1644; J2060; J2270; J2405; J3370; J7030; J7040; J7050

== ENCOUNTER 2018-12-31 18:52 | Emergency (ER) | payer OTHER ==
[~2018-12-31] VITALS: Ht 180.3 cm; Wt 93.0 kg
[~2018-12-31 18:52] MED LIST changes: +DOXE25CA2 PO; -OXYC-279 PO; +OXYC-431 PO; +OXYC15TA PO; -QUET400T PO; +QUET400T11 PO; -TAMS0.4C2 PO
[2018-12-31 19:04] VITALS: Ht 180.3 cm; Wt 93.0 kg
--- NOTE | 2018-12-31 19:47 | ERD ---
ER Documentation Chief Complaint Chief Complaint Abd pain since 1230 today, off oxycontin x 2 days, denies n/v/d, no fever HPI This is a 58-year-old woman brought in by EMS from home for complaints of abdominal pain, cramping, diffuse with some nausea, tearing, rhinorrhea. She uses opioid analgesics daily and states she stopped using them 2 days ago. She denies blood per rectum or melena, no weight loss, no fevers or chills, no complaints of chest pain or shortness of breath. ROS All systems reviewed and are negative except as per history of present illness. Medications Home Meds Reported Medications Oxycodone Hcl* (IR) (Oxycodone Hcl*) 15 Mg Tablet, 15 MG PO Q8H PRN for PAIN, TAB 12/31/18 Quetiapine Fumarate* (Quetiapine Fumarate*) 400 Mg Tablet, 400 MG PO HS, TAB 09/17/18 Doxepin Hcl* (Doxepin Hcl*) 25 Mg Capsule, 25 MG PO HS, CAP 09/17/18 Lamotrigine* (Lamotrigine*) 200 Mg Tablet, 200 MG PO DAILY, TAB 09/17/18 Discontinued Reported Medications Oxycodone HCl/Acetaminophen (Oxycodone-Acetaminophen 10-325) 1 Each Tablet, 2 EACH PO BID, TAB 09/17/18 Allergies Allergies: Coded Allergies: bupropion (Verified Allergy, Intermediate, 12/31/18) Uncoded Allergies: UNK IV ANTIBIOTICS (Allergy, Unknown, 12/31/18) PMhx/Soc Hypertension, bipolar disorder History of Surgery: Yes (hysterectomy, ankles, right knee) Anesthesia Reaction: No Hx Neurological Disorder: No Hx Respiratory Disorders: No Hx Cardiac Disorders: No Hx Psychiatric Problems: Yes (bipolar) Hx Miscellaneous Medical Probl: No Hx Alcohol Use: No Hx Substance Use: No Hx Tobacco Use: Yes Smoking Status: Smoker,current status unk FmHx Family History: No diabetes Physical Exam Vitals Vital Signs Date Temp Pulse Resp B/P (MAP) Pulse Ox O2 O2 Flow FiO2 Time Delivery Rate 12/31/18 81 20 161/96 100 Room Air 21:04 (117) 12/31/18 97.0 102 24 156/107 99 19:04 (123) Physical Exam Const: Well-developed well-nourished woman, afebrile, nontoxic in appearance HEENT: Positive lacrimation, rhinorrhea, no cervical spine deformity or tenderness to touch Resp: Clear to auscultation bilaterally Cardio: Tachycardic and regular Abd: Soft, non tender, non distended. Normal bowel sounds, no guarding or rigidity, no rebound Neur: Awake and alert x3, no focal deficits or facial asymmetry, pupils equal round reactive to light Psych: Normal Mood and Affect Result Diagram: 12/31/182010 Results 24 hrs Laboratory Tests Test 12/31/18 20:11 12/31/18 20:14 White Blood Count 9.5 10^3/ul Red Blood Count 4.89 10^6/ul Hemoglobin 13.2 g/dl Hematocrit 41.2 % Mean Corpuscular Volume 84.3 fl Mean Corpuscular Hemoglobin 27.0 pg Mean Corpuscular Hemoglobin Concent 32.0 g/dl Red Cell Distribution Width 19.3 % Platelet Count 268 10^3/UL Mean Platelet Volume 10.3 fl Immature Granulocytes % 0.500 % Neutrophils % 78.7 % Lymphocytes % 16.5 % Monocytes % 3.6 % Eosinophils % 0.4 % Basophils % 0.3 % Nucleated Red Blood Cells % 0.0 /100WBC Immature Granulocytes # 0.050 10^3/ul Neutrophils # 7.5 10^3/ul Lymphocytes # 1.6 10^3/ul Monocytes # 0.3 10^3/ul Eosinophils # 0.0 10^3/ul Basophils # 0.0 10^3/ul Nucleated Red Blood Cells # 0.0 10^3/ul Urine Color YELLOW Urine Clarity CLOUDY Urine pH 6.0 Urine Specific Blum 1.026 Urine Ketones 1+ mg/dL Urine Nitrite NEGATIVE mg/dL Urine Bilirubin NEGATIVE mg/dL Urine Urobilinogen NEGATIVE mg/dL Urine Leukocyte Esterase 1+ Arielle/ul Urine Microscopic RBC 41 /HPF Urine Microscopic WBC 10 /HPF Urine Squamous Epithelial Cells MANY /HPF Urine Calcium Oxalate Crystals MODERATE /HPF Urine Bacteria FEW /HPF Urine Mucus FEW /HPF Urine Yeast (Budding) FEW /HPF Urine Hemoglobin 1+ mg/dL Urine Glucose NEGATIVE mg/dL Urine Total Protein NEGATIVE mg/dl Current Medications Medications Dose Sig/Daniela Start Time Status Last (Trade) Ordered Route PRN Stop Time Admin Dose Reason Admin Sodium 1,000 ml @ Q1H STAT 12/31/18 DC 12/31/18 Chloride 1,000 mls/hr IV 19:59 12/31/18 20:07 20:58 Morphine 4 mg ONCE STAT 12/31/18 DC 12/31/18 Sulfate IV 19:59 12/31/18 20:07 (morphine) 20:01 Ondansetron 4 mg ONCE STAT 12/31/18 DC 12/31/18 HCl (Zofran IV 19:59 12/31/18 20:07 Inj) 20:01 Ceftriaxone 50 ml @ ONCE ONCE 12/31/18 DC 12/31/18 Sodium 100 mls/hr IVPB 21:00 12/31/18 20:50 21:29 Ketorolac 15 mg ONCE STAT 12/31/18 DC 12/31/18 Tromethamine IV 20:57 12/31/18 21:01 (Toradol) 20:59 Procedures/MDM IV line was established patient was placed on agriculture engineer rhythm strip revealed a narrow complex tachycardia at 110 bpm with upright P and T waves. Patient was afebrile I administered 1 L normal saline IV, morphine 4 mg IV, Zofran 4 mg IV, I also later administered Toradol 50 mg IV for continued abdominal pain. CBC was normal, electrolytes are pending I will follow-up, urine analysis is positive for infection. I administered ceftriaxone 1 g IV. Patient has an active urinary tract infection and she stated she has been using doxycycline daily for recent diagnosis of UTI, it seems she has failed outpatient antibiotic therapy and will be admitted for intractable abdominal pain and antibiotic refractory urinary tract infection. CT scan of the abdomen pelvis has been ordered results are pending I will follow-up Patient will be admitted to [facility] Departure Diagnosis: Primary Impression: Abdominal pain Abdominal location: generalized Qualified Codes: R10.84 - Generalized abdominal pain Additional Impressions: Acute UTI Opioid withdrawal Condition: JOSEPH Lomax MD Dec 31, 2018 19:47
[2018-12-31] MEDS ORDERED: ONDANSETRON 4 MG INJ IV STA (19:59)
[2018-12-31] MEDS ORDERED: morphine 4 MG/ML VIAL IV STA (19:59)
[2018-12-31] MEDS ORDERED: SOD CHLORIDE 0.9% 1,000 ML IV STA (19:59)
[2018-12-31] MEDS ORDERED: KETOROLAC 15 MG INJ IV STA (20:57)
[2018-12-31] MEDS ORDERED: CEFTRIAXONE 1 GM/50 ML (PMX) 50 ML IVPB ONE (21:00)
[2018-12-31] MEDS ORDERED: SOD CHLORIDE 0.9% 1,000 ML IV SCH (22:38)
[2018-12-31] MEDS ORDERED: ACETAMINOPHEN 325 MG TAB PO PRN (23:00)
[2018-12-31] MEDS ORDERED: NACL 0.9% 3 ML SYG IV SCH (23:00)
[2018-12-31] MEDS ORDERED: morphine 2 MG INJ IV PRN (23:00)
[2018-12-31] MEDS ORDERED: HYDROmorphONE 0.5 MG/0.5 ML SYG IV STA (23:17)
[2019-01-01] MEDS ORDERED: LIDOCAINE 2% JEL.PF.APP 5 ML UROJET SYRINGE MM ONE
[2019-01-01 02:02] VITALS: BP 156/95; PULSE 80; RESP 16
[2019-01-01] MEDS ORDERED: ENOXAPARIN 30 MG/0.3 ML SYG SC SCH (09:00)
[2019-01-01] MEDS ORDERED: FAMOTIDINE 20 MG INJ IV SCH (09:00)
[2019-01-01] MEDS ORDERED: CEFTRIAXONE 1 GM/50 ML (PMX) 50 ML IVPB SCH (09:00)
== END 2019-01-01 02:04 | disposition short-term general hospital (02) ==
LOC: E/R 18:52 → CANBEDREQ 01-01 00:44 → E/R 01-01 02:04
DX: N39.0 Urinary tract infection, site not specified (principal); F11.23 Opioid dependence with withdrawal; Z87.891 Personal history of nicotine dependence
CPT/HCPCS: 36415; 74176; 80053; 81001; 83690; 85025; 96374; 96375; 96376; 99285; J0696; J1170; J1885; J2270; J2405; J7030